=== PATIENT | female | born 1940 | race African-American/Black ===

== ENCOUNTER 2022-03-14 16:20 | Inpatient (IN) | payer OTHER ==
[~2022-03-14] VITALS: Ht 162.6 cm; Wt 40.8 kg
[~2022-03-14 16:20] MED LIST: DIGO125T80 PO; LACT10SO PO; LORA-249 PO; LOSA25TA3 PO; NIFE90TA2 PO; OMEP20CA4 PO; PRAZ5CAP2 PO; SIMV-343 PO; SPIR25TA PO; TIOT18CA3 INH; WARF-53 PO
[2022-03-14 17:14] LABS: HEMATOCRIT. 22.1 % (36.0-48.0); HEMOGLOBIN. 7.2 g/dL (12.0-16.0); MEAN CORPUSCULAR HEMOGLOBIN 28.6 pg (28.0-32.0); MEAN CORPUSCULAR VOLUME 88.5 fL (81.0-99.0); MEAN PLATELET VOLUME 8.1 fl (7.4-10.4); PLATELET 302 x1000/uL (130-400); RED CELL DISTRIBUTION WIDTH 16.7 % (11.6-14.6)
[2022-03-14 17:23] LABS: CHLORIDE 105 mEq/L (98-107)
[2022-03-14 18:21] LABS: CLARITY URINE CLEAR (CLEAR); COLOR URINE YELLOW (YELLOW); SPECIFIC GRAVITY URINE 1.015 (1.005-1.030)
[2022-03-14 18:22] LABS: KETONES URINE NEGATIVE (NEGATIVE); LEUKOCYTE ESTERASE URINE NEGATIVE (NEGATIVE); NITRITE URINE NEGATIVE (NEGATIVE); OCCULT BLOOD URINE NEGATIVE (NEGATIVE); PROTEIN URINE 2+ (NEGATIVE); UROBILINOGEN URINE 0.2 E.U./dL (0.2-1.0)
[2022-03-14 18:37] LABS: PROTHROMBIN TIME 10.5 sec (9.6-11.0)
[2022-03-14] MEDS ORDERED: FUROSEMIDE 40MG/4ML VIAL IVP NR (19:00)
[2022-03-14] MEDS ORDERED: METHYLPREDNISOLONE SOD SUCC 125 MG/2 ML VIAL IV ONE (19:00)
[2022-03-14] MEDS ORDERED: NITROGLYCERIN OINT 1GM/INCH UDPKT TD NR (19:00)
[2022-03-14] MEDS ORDERED: APIXABAN 5 MG TABLET PO STA (19:28)
[2022-03-14] MEDS ORDERED: NICARDIPINE 40MG/200ML PREMIX 200 ML IV STA (19:51)
[2022-03-14] MEDS ORDERED: APIXABAN 2.5 MG TABLET PO STA (20:05)
[2022-03-14 22:21] LABS: PLATELET ESTIMATE NORMAL
[2022-03-15] VITALS (61 sets, daily range): BP systolic 119–190; BP diastolic 24–129
[2022-03-15] MEDS ORDERED: NICARDIPINE 40MG/200ML PREMIX 200 ML IV STA (01:15)
[2022-03-15] MEDS ORDERED: NICARDIPINE 40MG/200ML PREMIX 200 ML IV PRN (05:30)
[2022-03-15] MEDS ORDERED: APIX2.5T PO (07:52)
[2022-03-15] MEDS ORDERED: MELA5TAB19 PO (07:52)
[2022-03-15] MEDS ORDERED: ONDANSETRON HCL 4MG/2ML INJ IV PRN (10:00)
[2022-03-15] MEDS ORDERED: DIPHENHYDRAMINE 50MG/ML VIAL IV PRN (10:00)
[2022-03-15] MEDS ORDERED: IPRATROPIUM/ALBUTEROL 0.5-3(2.5)MG/3ML NEB HHN PRN (10:00)
[2022-03-15] MEDS: METHYLPREDNISOLONE SOD SUCC 40 MG/ML VIAL IV SCH ×2 (12:00→21:59)
[2022-03-15] MEDS ORDERED: LOSARTAN POTASSIUM 25 MG TABLET PO NR (15:30)
[2022-03-15] MEDS: CLONIDINE 0.1MG TABLET PO PRN (15:36)
[2022-03-15] MEDS ORDERED: FUROSEMIDE 40MG/4ML VIAL IV SCH (17:00)
[2022-03-15] MEDS: APIXABAN 2.5 MG TABLET PO SCH (17:25)
[2022-03-15] MEDS: FUROSEMIDE 40MG TABLET PO SCH (17:37)
[2022-03-15] MEDS: IPRATROPIUM/ALBUTEROL 0.5-3(2.5)MG/3ML NEB HHN SCH (19:57)
[2022-03-16] VITALS (85 sets, daily range): BP systolic 97–186; BP diastolic 42–123
[2022-03-16] MEDS: CLONIDINE 0.1MG TABLET PO PRN ×3 (00:46→22:15)
[2022-03-16] MEDS: IPRATROPIUM/ALBUTEROL 0.5-3(2.5)MG/3ML NEB HHN SCH ×4 (01:52→20:38)
[2022-03-16] MEDS ORDERED: AMLODIPINE 5MG TABLET PO SCH ×2 (04:45→09:00)
[2022-03-16] MEDS: METHYLPREDNISOLONE SOD SUCC 40 MG/ML VIAL IV SCH ×3 (04:58→20:40)
[2022-03-16 05:14] LABS: CHLORIDE 105 mEq/L (98-107)
[2022-03-16 05:17] LABS: HEMATOCRIT. 22.2 % (36.0-48.0); MEAN CORPUSCULAR HEMOGLOBIN 27.9 pg (28.0-32.0); MEAN PLATELET VOLUME 7.6 fl (7.4-10.4); PLATELET 376 x1000/uL (130-400); RED CELL DISTRIBUTION WIDTH 17.4 % (11.6-14.6)
[2022-03-16] MEDS: NICARDIPINE 100 MG in SODIUM CHLORIDE 0.9% 60 ML IV PRN ×3 (06:12→23:11)
[2022-03-16] MEDS: FUROSEMIDE 40MG TABLET PO SCH ×2 (07:01→17:24)
[2022-03-16] MEDS: APIXABAN 2.5 MG TABLET PO SCH (08:12)
[2022-03-16] MEDS ORDERED: LOSARTAN POTASSIUM 25 MG TABLET PO SCH (09:00)
[2022-03-16] MEDS ORDERED: DEXTROSE 50% WATER 50ML SYRINGE IV PRN ×2 (09:30→12:15)
[2022-03-16] MEDS ORDERED: BUDESONIDE 0.5MG/2ML NEB HHN SCH (09:45)
[2022-03-16 09:47] LABS: PLATELET ESTIMATE NORMAL
[2022-03-16] MEDS ORDERED: LOSARTAN POTASSIUM 25 MG TABLET PO NR (10:30)
[2022-03-16] MEDS ORDERED: AMLODIPINE 5MG TABLET PO NR (10:30)
[2022-03-16] MEDS ORDERED: MELATONIN 3 MG XX SCH (11:00)
[2022-03-16] MEDS: BLOOD SUGAR DIAGNOSTIC STRIP TEST SCH ×3 (12:11→20:27)
[2022-03-16] MEDS: INSULIN LISPRO 100 UNITS/ML SUBCUT SCH ×3 (12:24→20:35)
[2022-03-16] MEDS ORDERED: BLOOD SUGAR DIAGNOSTIC STRIP TEST SCH (12:50)
[2022-03-16] MEDS ORDERED: INSULIN LISPRO 100 UNITS/ML SUBCUT SCH (13:20)
[2022-03-16] MEDS ORDERED: OMEPRAZOLE 20MG CAPSULE EXTENDED RELEASE PO SCH (17:50)
[2022-03-16 18:26] LABS: HEMATOCRIT 22.9 % (36.0-48.0); HEMOGLOBIN 7.1 g/dL (12.0-16.0); MEAN CORPUSCULAR HEMOGLOBIN 27.6 pg (28.0-32.0); MEAN CORPUSCULAR VOLUME 88.4 fL (81.0-99.0); PLATELET 410 x1000/uL (130-400); RED BLOOD CELL COUNT 2.59 mill/uL (4.2-5.4); RED CELL DISTRIBUTION WIDTH 16.8 % (11.6-14.6)
[2022-03-16 18:43] LABS: TOTAL IRON BINDING CAPACITY 240 ug/dL (250-450)
[2022-03-16 19:04] LABS: FERRITIN 45 ng/mL (10-291)
[2022-03-16 19:14] LABS: VITAMIN B12 SERUM 1272 pg/mL (211-911)
[2022-03-16] MEDS ORDERED: ATORVASTATIN CALCIUM 10MG TABLET PO SCH (21:00)
[2022-03-16] MEDS ORDERED: MELATONIN 3MG TABLET PO SCH (21:00)
[2022-03-17] MEDS ORDERED: AMLODIPINE 10MG TABLET PO SCH (09:00)
[2022-03-17] MEDS ORDERED: LOSARTAN POTASSIUM 50 MG TABLET PO SCH (09:00)
[2022-03-23] MEDS ORDERED: INSULIN LISPRO 100 UNITS/ML SUBCUT SCH (13:20)
== END 2022-03-16 23:15 | disposition short-term general hospital (02) | DRG 189 ==
LOC: ER 16:20 → EDBEDREQ 18:50 → MICUSO 21:17 → EDBEDREQ 21:24 → EDBEDREQSVC 23:21 → CVICU 03-15 03:49
PROVIDERS: ADMIT Internal Medicine; ATTEND Internal Medicine
PROC: 5A09357 Assistance with Respiratory Ventilation, Less than 24 Consecutive Hours, Continuous Positive Airway Pressure (ICD-10-PCS; principal; 2022-03-14)
DX: J96.00 Acute respiratory failure, unspecified whether with hypoxia or hypercapnia (principal); I50.43 Acute on chronic combined systolic (congestive) and diastolic (congestive) heart failure; I13.0 Hypertensive heart and chronic kidney disease with heart failure and stage 1 through stage 4 chronic kidney disease, or unspecified chronic kidney disease; I16.1 Hypertensive emergency; J44.1 Chronic obstructive pulmonary disease with (acute) exacerbation; Z20.822 Contact with and (suspected) exposure to COVID-19; E11.22 Type 2 diabetes mellitus with diabetic chronic kidney disease; D63.1 Anemia in chronic kidney disease; E78.5 Hyperlipidemia, unspecified; N18.2 Chronic kidney disease, stage 2 (mild); Z88.6 Allergy status to analgesic agent; Z88.1 Allergy status to other antibiotic agents; Z88.3 Allergy status to other anti-infective agents; Z88.0 Allergy status to penicillin; Z88.2 Allergy status to sulfonamides; Z91.018 Allergy to other foods; Z91.09 Other allergy status, other than to drugs and biological substances; Z87.891 Personal history of nicotine dependence; Z99.81 Dependence on supplemental oxygen
CPT/HCPCS: 36415; 71045; 80053; 81003; 82607; 82728; 82746; 82962; 83036; 83540; 83550; 83880; 84484; 85025; 85027; 87426; 93005; 93306; 93970; 94660; 99291; C1893; J1815; J1940; J2920; J2930; J3490; J7050; J7626

== ENCOUNTER 2022-03-28 17:43 | Emergency (ER) | payer OTHER ==
[~2022-03-28] VITALS: Ht 165.1 cm; Wt 82.0 kg
[~2022-03-28 17:43] MED LIST changes: +APIX2.5T PO; +MELA5TAB19 PO; -TIOT18CA3 INH; -WARF-53 PO
[2022-03-28 19:00] LABS: BASOPHILS % 0.3 % (0.0-2.0); EOSINOPHILS % 1.4 % (0.0-5.0); HEMATOCRIT. 33.3 % (36.0-48.0); HEMOGLOBIN. 10.7 g/dL (12.0-16.0); LYMPHOCYTES % 14.5 % (20.0-50.0); MEAN CORPUSCULAR HEMOGLOBIN 27.9 pg (28.0-32.0); MEAN CORPUSCULAR VOLUME 87.1 fL (81.0-99.0); MONOCYTES % 5.3 % (2.0-8.0); NEUTROPHILS % 78.5 % (40.0-76.0); PLATELET 204 x1000/uL (130-400); RED BLOOD CELL COUNT 3.82 mill/uL (4.2-5.4); RED CELL DISTRIBUTION WIDTH 17.1 % (11.6-14.6)
[2022-03-28 19:06] LABS: CHLORIDE 100 mEq/L (98-107)
[2022-03-28 19:29] LABS: PROTHROMBIN TIME 10.3 sec (9.6-11.0)
[2022-03-28] MEDS ORDERED: IPRATROPIUM/ALBUTEROL 0.5-3(2.5)MG/3ML NEB HHN ONE (20:00)
[2022-03-28] MEDS ORDERED: PREDNISONE 20MG TABLET PO ONE (20:00)
[2022-03-28] MEDS ORDERED: AZITHROMYCIN 500 MG in DEXT 5% WATER 250 ML IV ONE (22:45)
[2022-03-28] MEDS ORDERED: CEFTRIAXONE 1 G PREMIX 50 ML IV ONE (22:45)
[2022-03-28] MEDS ORDERED: AZITHROMYCIN 500MG/250ML 250 ML IV NR (23:00)
[2022-03-29 05:55] VITALS: BP 136/45
== END 2022-03-29 05:43 | disposition short-term general hospital (02) ==
LOC: ER 17:43 → EDBEDREQ 18:41 → ER 03-29 05:43
DX: J44.9 Chronic obstructive pulmonary disease, unspecified (principal); D64.9 Anemia, unspecified; I11.0 Hypertensive heart disease with heart failure; I50.9 Heart failure, unspecified; Z20.822 Contact with and (suspected) exposure to COVID-19; Z88.6 Allergy status to analgesic agent; Z88.0 Allergy status to penicillin; Z88.1 Allergy status to other antibiotic agents; Z88.2 Allergy status to sulfonamides; Z88.5 Allergy status to narcotic agent; Z88.8 Allergy status to other drugs, medicaments and biological substances; Z91.013 Allergy to seafood; Z88.9 Allergy status to unspecified drugs, medicaments and biological substances; Z98.890 Other specified postprocedural states
CPT/HCPCS: 36415; 71045; 80053; 83690; 83880; 84484; 85025; 85610; 87426; 93005; 94640; 96365; 96366; 99285; C9803; J0456; J0696; J7512; J7060

== ENCOUNTER 2022-05-26 10:23 | Inpatient (IN) | payer OTHER ==
[~2022-05-26] VITALS: Ht 154.9 cm; Wt 93.0 kg
[2022-05-26 11:06] LABS: BG BASE EXCESS -4.2 mmol/L (-2.0-2.0); BG CARBOXYHEMOGLOBIN 1.6 % (0.5-1.5); BG DEOXYHEMOGLOBIN 3.6 % (0.0-5.0); BG FRACTION INSPIRED OXYGEN 32; BG HCO3 ACT 20.6 mmol/L (22.0-26.0); BG METHEMOGLOBIN 0.1 % (0.0-1.5); BG OXYGEN SATURATION 96.3 % (92.0-98.5); BG OXYHEMOGLOBIN 94.7 % (94.0-97.0); BG PCO2 36.7 mmHg (35.0-45.0); BG PH 7.368 (7.350-7.450); BG PO2 105.5 mmHg (75.0-100.0); BG SAMPLE SITE RIGHT RADIAL; BG TOTAL HEMOGLOBIN 10.3 g/dL (12.0-18.0); BG VENT MODE NASAL CANNULA
[2022-05-26 11:34] LABS: BASOPHILS % 0.3 % (0.0-2.0); EOSINOPHILS % 0.1 % (0.0-5.0); HEMATOCRIT. 34.8 % (36.0-48.0); HEMOGLOBIN. 10.7 g/dL (12.0-16.0); LYMPHOCYTES % 10.5 % (20.0-50.0); MEAN CORPUSCULAR HEMOGLOBIN 28.8 pg (28.0-32.0); MEAN CORPUSCULAR VOLUME 93.5 fL (81.0-99.0); MEAN PLATELET VOLUME 8.9 fl (7.4-10.4); MONOCYTES % 4.8 % (2.0-8.0); NEUTROPHILS % 84.3 % (40.0-76.0); PLATELET 154 x1000/uL (130-400); RED BLOOD CELL COUNT 3.72 mill/uL (4.2-5.4); RED CELL DISTRIBUTION WIDTH 21.3 % (11.6-14.6)
[2022-05-26 11:40] LABS: CHLORIDE 114 mEq/L (98-107)
[2022-05-26] MEDS ORDERED: AZITHROMYCIN 500MG/250ML 250 ML IV ONE (12:45)
[2022-05-26] MEDS ORDERED: CEFTRIAXONE 1 G PREMIX 50 ML IV ONE (12:45)
[2022-05-26] MEDS ORDERED: DEXAMETHASONE 4MG/ML 1ML VIAL IV SCH (14:45)
[2022-05-26] MEDS ORDERED: FUROSEMIDE 40MG/4ML VIAL IVP SCH (15:00)
[2022-05-26] MEDS ORDERED: LOSARTAN POTASSIUM 50 MG TABLET PO SCH (15:00)
[2022-05-26] MEDS: SPIRONOLACTONE 25MG TABLET PO SCH (15:21)
[2022-05-26] MEDS: NIFEDIPINE XL 90MG TAB PO SCH (15:56)
[2022-05-26] MEDS: ALBUTEROL 6.7GM HFA INHALER ORI SCH (16:45)
[2022-05-26] MEDS ORDERED: ACETAMINOPHEN 325MG TABLET PO PRN ×2 (18:30)
[2022-05-26] MEDS ORDERED: MAGNESIUM/ALUMINUM HYDROXIDE/SIMETHICONE 30ML UDC PO PRN (18:30)
[2022-05-26] MEDS ORDERED: ONDANSETRON HCL 4MG/2ML INJ IV PRN (18:30)
[2022-05-26] MEDS ORDERED: DIPHENHYDRAMINE 50MG/ML VIAL IV PRN (18:30)
[2022-05-26] MEDS ORDERED: ENOXAPARIN 40MG/0.4ML SYR SUBCUT SCH (18:30)
[2022-05-26] MEDS: HYDRALAZINE 20MG/ML VIAL IV PRN (18:42)
[2022-05-26] MEDS: ENOXAPARIN 30MG/0.3ML SYR SUBCUT SCH (18:43)
[2022-05-26] MEDS ORDERED: DEXTROSE 50% WATER 50ML SYRINGE IV PRN (18:45)
[2022-05-26 20:00] VITALS: BP_SYST 146; BP_SYST 150; BP_DIAS 51; BP_DIAS 74
[2022-05-26 20:08] VITALS: BP 146/51
[2022-05-26 20:47] LABS: BG CARBOXYHEMOGLOBIN 2.3 % (0.5-1.5); BG DEOXYHEMOGLOBIN 8.5 % (0.0-5.0); BG FRACTION INSPIRED OXYGEN 28; BG HCO3 ACT 20.4 mmol/L (22.0-26.0); BG METHEMOGLOBIN 0.1 % (0.0-1.5); BG OXYGEN SATURATION 91.3 % (92.0-98.5); BG OXYHEMOGLOBIN 89.1 % (94.0-97.0); BG PCO2 31.2 mmHg (35.0-45.0); BG PH 7.433 (7.350-7.450); BG PO2 62.9 mmHg (75.0-100.0); BG SAMPLE SITE LEFT RADIAL; BG TOTAL HEMOGLOBIN 11.6 g/dL (12.0-18.0); BG VENT MODE NASAL CANNULA
[2022-05-26] MEDS: INSULIN LISPRO 100 UNITS/ML SUBCUT SCH (21:00)
[2022-05-26] MEDS ORDERED: ZOLPIDEM TARTRATE 5MG TABLET PO PRN (21:00)
[2022-05-26] MEDS: BLOOD SUGAR DIAGNOSTIC STRIP TEST SCH (21:01)
[2022-05-26] MEDS: SODIUM CHLORIDE 0.9% INJ 3ML FLUSH IVF SCH (21:03)
[2022-05-26] MEDS: OMEPRAZOLE 20MG CAPSULE EXTENDED RELEASE PO SCH (21:04)
[2022-05-26] MEDS: ATORVASTATIN CALCIUM 10MG TABLET PO SCH (21:04)
[2022-05-26] MEDS: LORAZEPAM 2MG/ML CPJ IV PRN (21:12)
[2022-05-27] VITALS: BP 123/66
[2022-05-27] MEDS: ALBUTEROL 6.7GM HFA INHALER ORI SCH ×4 (03:48→21:00)
[2022-05-27 04:00] VITALS: BP 109/58
[2022-05-27] MEDS: BLOOD SUGAR DIAGNOSTIC STRIP TEST SCH ×4 (06:14→20:12)
[2022-05-27] MEDS: SODIUM CHLORIDE 0.9% INJ 3ML FLUSH IVF SCH ×3 (06:14→21:33)
[2022-05-27] MEDS: INSULIN LISPRO 100 UNITS/ML SUBCUT SCH ×4 (06:14→20:12)
[2022-05-27] MEDS: OMEPRAZOLE 20MG CAPSULE EXTENDED RELEASE PO SCH (06:16)
[2022-05-27 08:00] VITALS: BP 185/59
[2022-05-27] MEDS: LOSARTAN POTASSIUM 50 MG TABLET PO SCH (08:47)
[2022-05-27] MEDS: SPIRONOLACTONE 25MG TABLET PO SCH (08:47)
[2022-05-27] MEDS: AMLODIPINE 10MG TABLET PO SCH (08:48)
[2022-05-27] MEDS: NIFEDIPINE XL 90MG TAB PO SCH (08:48)
[2022-05-27] MEDS ORDERED: DEXAMETHASONE 10 MG/ML VIAL IV SCH (09:00)
[2022-05-27 12:00] VITALS: BP 208/74
[2022-05-27] MEDS: HYDRALAZINE 20MG/ML VIAL IV PRN (12:28)
[2022-05-27] MEDS ORDERED: ALBUTEROL 6.7GM HFA INHALER ORI NR (12:30)
[2022-05-27 16:00] VITALS: BP 185/62
[2022-05-27] MEDS: CLONIDINE 0.1MG TABLET PO PRN ×2 (17:14→21:24)
[2022-05-27] MEDS: ENOXAPARIN 30MG/0.3ML SYR SUBCUT SCH (17:14)
[2022-05-27] MEDS: METHYLPREDNISOLONE SOD SUCC 40 MG/ML VIAL IV SCH (18:46)
[2022-05-27 20:00] VITALS: BP 192/83
[2022-05-27 20:34] LABS: PROTHROMBIN TIME 10.3 sec (9.6-11.0)
[2022-05-27] MEDS: ATORVASTATIN CALCIUM 10MG TABLET PO SCH (21:24)
[2022-05-27] MEDS: FAMOTIDINE 20MG TABLET PO SCH (21:24)
[2022-05-28] VITALS (7 sets, daily range): BP systolic 162–203; BP diastolic 47–104
[2022-05-28] MEDS: CLONIDINE 0.1MG TABLET PO PRN ×3 (01:18→18:32)
[2022-05-28] MEDS: METHYLPREDNISOLONE SOD SUCC 40 MG/ML VIAL IV SCH ×3 (01:18→18:32)
[2022-05-28] MEDS: ALBUTEROL 6.7GM HFA INHALER ORI SCH ×4 (01:28→21:50)
[2022-05-28] MEDS: SODIUM CHLORIDE 0.9% INJ 3ML FLUSH IVF SCH ×3 (05:27→21:49)
[2022-05-28] MEDS: BLOOD SUGAR DIAGNOSTIC STRIP TEST SCH ×4 (05:49→20:34)
[2022-05-28] MEDS: INSULIN LISPRO 100 UNITS/ML SUBCUT SCH ×4 (06:30→20:34)
[2022-05-28] MEDS ORDERED: ALBUTEROL 6.7GM HFA INHALER ORI PRN (08:15)
[2022-05-28] MEDS: SPIRONOLACTONE 25MG TABLET PO SCH (09:00)
[2022-05-28] MEDS: AMLODIPINE 10MG TABLET PO SCH (09:17)
[2022-05-28] MEDS: LOSARTAN POTASSIUM 50 MG TABLET PO SCH (09:17)
[2022-05-28] MEDS: NIFEDIPINE XL 90MG TAB PO SCH (09:17)
[2022-05-28] MEDS ORDERED: DILTIAZEM HCL 5MG/ML 5ML VIAL IV NR (11:00)
[2022-05-28 11:35] LABS: BG BASE EXCESS -6.2 mmol/L (-2.0-2.0); BG CARBOXYHEMOGLOBIN 1.7 % (0.5-1.5); BG DEOXYHEMOGLOBIN 3.2 % (0.0-5.0); BG FRACTION INSPIRED OXYGEN 36; BG METHEMOGLOBIN 0.1 % (0.0-1.5); BG OXYGEN SATURATION 96.7 % (92.0-98.5); BG PCO2 31.2 mmHg (35.0-45.0); BG PH 7.378 (7.350-7.450); BG PO2 114.9 mmHg (75.0-100.0); BG SAMPLE SITE LEFT RADIAL; BG TOTAL HEMOGLOBIN 11.7 g/dL (12.0-18.0); BG VENT MODE NASAL CANNULA
[2022-05-28] MEDS: ENOXAPARIN 30MG/0.3ML SYR SUBCUT SCH (16:35)
[2022-05-28] MEDS ORDERED: LOSARTAN POTASSIUM 100 MG TABLET PO NR (21:00)
[2022-05-28] MEDS ORDERED: LOSARTAN POTASSIUM 100 MG TABLET PO ONE (21:00)
[2022-05-28] MEDS: ATORVASTATIN CALCIUM 10MG TABLET PO SCH (21:48)
[2022-05-28] MEDS: FAMOTIDINE 20MG TABLET PO SCH (21:48)
[2022-05-28] MEDS: CLONIDINE 0.2MG TABLET PO SCH (21:49)
[2022-05-28] MEDS ORDERED: DILTIAZEM HCL 300MG CAPSULE SR 24HR PO NR (23:00)
[2022-05-29] VITALS: BP 153/63
[2022-05-29] MEDS: LORAZEPAM 2MG/ML CPJ IV PRN (01:50)
[2022-05-29] MEDS: METHYLPREDNISOLONE SOD SUCC 40 MG/ML VIAL IV SCH ×3 (01:51→18:00)
[2022-05-29] MEDS: ALBUTEROL 6.7GM HFA INHALER ORI SCH (02:00)
[2022-05-29 04:00] VITALS: BP 187/62
[2022-05-29] MEDS: CLONIDINE 0.2MG TABLET PO SCH ×3 (05:57→21:55)
[2022-05-29] MEDS: BLOOD SUGAR DIAGNOSTIC STRIP TEST SCH ×4 (05:57→20:39)
[2022-05-29] MEDS: SODIUM CHLORIDE 0.9% INJ 3ML FLUSH IVF SCH ×3 (05:57→22:19)
[2022-05-29] MEDS: INSULIN LISPRO 100 UNITS/ML SUBCUT SCH ×4 (06:10→20:39)
[2022-05-29 08:00] VITALS: BP 165/50
[2022-05-29] MEDS: SPIRONOLACTONE 25MG TABLET PO SCH (09:25)
[2022-05-29] MEDS: NIFEDIPINE XL 90MG TAB PO SCH (09:25)
[2022-05-29] MEDS: LOSARTAN POTASSIUM 50 MG TABLET PO SCH (09:26)
[2022-05-29 12:00] VITALS: BP 136/92
[2022-05-29] MEDS: CLONIDINE 0.1MG TABLET PO PRN (14:46)
[2022-05-29 16:00] VITALS: BP 154/56
[2022-05-29] MEDS: ENOXAPARIN 40MG/0.4ML SYR SUBCUT SCH (17:56)
[2022-05-29 20:00] VITALS: BP 140/39
[2022-05-29] MEDS: ATORVASTATIN CALCIUM 10MG TABLET PO SCH (20:39)
[2022-05-29] MEDS: FAMOTIDINE 20MG TABLET PO SCH (20:39)
[2022-05-30] VITALS (7 sets, daily range): BP systolic 103–161; BP diastolic 42–62
[2022-05-30] MEDS: METHYLPREDNISOLONE SOD SUCC 40 MG/ML VIAL IV SCH ×3 (01:17→18:33)
[2022-05-30] MEDS: CLONIDINE 0.2MG TABLET PO SCH ×3 (05:15→20:43)
[2022-05-30] MEDS: SODIUM CHLORIDE 0.9% INJ 3ML FLUSH IVF SCH ×3 (05:16→20:43)
[2022-05-30] MEDS: INSULIN LISPRO 100 UNITS/ML SUBCUT SCH ×4 (07:10→20:43)
[2022-05-30] MEDS: BLOOD SUGAR DIAGNOSTIC STRIP TEST SCH ×4 (07:26→20:43)
[2022-05-30] MEDS ORDERED: LIDOCAINE HCL 1% 30ML VIAL (10MG/ML) ONE (07:40)
[2022-05-30] MEDS: LOSARTAN POTASSIUM 50 MG TABLET PO SCH (09:00)
[2022-05-30] MEDS: NIFEDIPINE XL 90MG TAB PO SCH (09:00)
[2022-05-30] MEDS: SPIRONOLACTONE 25MG TABLET PO SCH (09:51)
[2022-05-30 13:14] LABS: HEMATOCRIT. 33.9 % (36.0-48.0); HEMOGLOBIN. 10.5 g/dL (12.0-16.0); MEAN CORPUSCULAR HEMOGLOBIN 28.1 pg (28.0-32.0); MEAN CORPUSCULAR VOLUME 90.4 fL (81.0-99.0); PLATELET 140 x1000/uL (130-400); RED BLOOD CELL COUNT 3.75 mill/uL (4.2-5.4); RED CELL DISTRIBUTION WIDTH 19.8 % (11.6-14.6)
[2022-05-30 13:53] LABS: CHLORIDE 110 mEq/L (98-107)
[2022-05-30 13:56] LABS: PLATELET ESTIMATE NORMAL
[2022-05-30] MEDS ORDERED: DEXT 5%/0.45% NACL 1000ML 1,000 ML IV SCH (16:45)
[2022-05-30] MEDS: ENOXAPARIN 40MG/0.4ML SYR SUBCUT SCH (18:33)
[2022-05-30] MEDS: FAMOTIDINE 20MG TABLET PO SCH (20:43)
[2022-05-30] MEDS: ATORVASTATIN CALCIUM 10MG TABLET PO SCH (20:43)
[2022-05-30] MEDS ORDERED: GUAIFENESIN 600MG ER TABLET PO SCH (21:00)
== END 2022-05-31 01:04 | disposition short-term general hospital (02) | DRG 871 ==
LOC: ER 10:23 → 7EST 13:01 → EDBEDREQTM 13:02 → EDBEDREQSVC 13:02 → EDBEDREQ 13:02 → EDBEDREQSVC 14:16 → ENRESERV 16:53
PROVIDERS: ADMIT Internal Medicine; ATTEND Internal Medicine
PROC: 5A09357 Assistance with Respiratory Ventilation, Less than 24 Consecutive Hours, Continuous Positive Airway Pressure (ICD-10-PCS; 2022-05-26)
PROC: 0W993ZZ Drainage of Right Pleural Cavity, Percutaneous Approach (ICD-10-PCS; principal; 2022-05-29)
PROC: 02HV33Z Insertion of Infusion Device into Superior Vena Cava, Percutaneous Approach (ICD-10-PCS; 2022-05-30)
PROC: B548ZZA Ultrasonography of Superior Vena Cava, Guidance (ICD-10-PCS; 2022-05-30)
DX: A41.89 Other specified sepsis (principal); I50.33 Acute on chronic diastolic (congestive) heart failure; J12.82 Pneumonia due to coronavirus disease 2019; J96.21 Acute and chronic respiratory failure with hypoxia; U07.1 COVID-19; F23 Brief psychotic disorder; I13.0 Hypertensive heart and chronic kidney disease with heart failure and stage 1 through stage 4 chronic kidney disease, or unspecified chronic kidney disease; J44.0 Chronic obstructive pulmonary disease with (acute) lower respiratory infection; N17.9 Acute kidney failure, unspecified; I48.91 Unspecified atrial fibrillation; N18.9 Chronic kidney disease, unspecified; Z99.81 Dependence on supplemental oxygen; Z88.6 Allergy status to analgesic agent; Z88.1 Allergy status to other antibiotic agents; Z88.3 Allergy status to other anti-infective agents; Z88.5 Allergy status to narcotic agent; Z88.0 Allergy status to penicillin; Z88.2 Allergy status to sulfonamides; Z91.018 Allergy to other foods; Z88.8 Allergy status to other drugs, medicaments and biological substances; Z87.891 Personal history of nicotine dependence; Z78.1 Physical restraint status
CPT/HCPCS: 32555; 36415; 36573; 36600; 71045; 80048; 80053; 82375; 82805; 82962; 83615; 83735; 83880; 84100; 84484; 85025; 87426; 87804; 93005; 94640; 99291; C1725; C1893; C9803; J0360; J0456; J0696; J1100; J1200; J1650; J1940; J2060; J2405; J2920; J3490